=== PATIENT | female | born 1990 | race African-American/Black ===

== ENCOUNTER 2016-11-11 00:03 | Emergency (ER) | payer OTHER ==
[~2016-11-11] VITALS: Ht 172.7 cm; Wt 72.0 kg
[~2016-11-11 00:03] MED LIST: Natalcare Rx,Pramile PO; [UNRECOGNIZED DRUG - OTHER]
[2016-11-11] MEDS ORDERED: PEPCID20 MG PO (01:22)
[2016-11-11] MEDS ORDERED: PREDNISONE20 MG PO (01:22)
[2016-11-11 01:39] VITALS: BP 142/92
== END 2016-11-11 01:45 | disposition home or self-care (01) ==
LOC: EME 00:03
DX: T78.3XXA Angioneurotic edema, initial encounter (principal); Z88.6 Allergy status to analgesic agent; Z87.891 Personal history of nicotine dependence
CPT/HCPCS: 99281; 99284; J2930